=== PATIENT | male | born 1980 | race Caucasian/White ===

== ENCOUNTER 2024-09-17 13:14 | Outpatient (AMB) | payer OTHER, SELFPAY ==
--- NOTE | 2024-09-17 13:17 | A.OFFPC_ITS ---
Vital Signs 09/17/24 13:19 Height 5 ft 10.08 in Weight 180 lb 8 oz BMI 25.8 BP 120/70 Blood Pressure Location Lt brachial Position Sitting Pulse 73 Pulse Source Pulse Oximeter Temp 97.1 F Temp Source Temporal Artery Scan Pulse Oximetry (%) 99 Oxygen Delivery Method Room Air Intake Visit Reasons: Establish Care Intake Note: Patient is a new patient here to establish care for Anxiety. Transferring care from [place]. Medical records have been requested and have not received. Referral to Urology (hx of vasectomy), GI (family hx of polyps) and lab order Wall Steamer Required: No Telecommunication Engineer: Not Required per policy Accompanied by: Self / Same As Patient Allergies Penicillins Allergy (Intermediate, Verified 09/17/24 13:29) Hives Sulfa (Sulfonamide Antibiotics) Allergy (Intermediate, Verified 09/17/24 13:29) Hives Medication List - Last Reconciled 09/17/24 by Joan Gaytan PA-C No Known Home Meds Tobacco use date assessed: 09/17/24 Dental Screening Dental Screen Date: 09/17/24 Did you have a dental visit in the last 12 months?: Yes Did you have a dental problem in the last 6 months where you did not have access to dental care?: No Was dental information given to patient?: Patient has dentist HPI Establish Care HPI Details 44-year-old male coming to the office fo r the 1st time. Presenting for a wellness examination with screening concerns for prostate cancer and colonoscopy due to family history. His last medical visit was over a year ago, and he maintains his health without regular medication. He experiences worsening allergy symptoms, notably affecting his respiratory system, observed after relocation and exposure to local pollen, raising concerns about lingering childhood asthma. He also notes post-vasectomy heaviness and symptoms typical of carpal tunnel syndrome potentially linked to repetitive hand movements. [facility] Medical History (Updated 09/17/24 @ 14:00 by Joan Gaytan PA-C) Asthma Surgical History [place] teeth extracted History of vasectomy Social History Housing: House Alcohol intake: current Alcohol intake frequency: a few times a week Patient Tobacco Use Status: Never used Tobacco e-Cigarette/Vaping Use: Never Used Second Hand Smoke Exposure: No service: No Current occupational status: employed Current occupation: Self employed Cognitive needs: No Hearing needs: No Vision needs: Yes (Reading glasses) Questionnaire PHQ-9 Over the last 2 weeks, how often have you been bothered by any of the following problems? 1. Little interest or pleasure in doing things: not at all 2. Feeling down, depressed, or hopeless: not at all 3. Trouble falling or staying asleep, or sleeping too much: not at all 4. Feeling tired or having little energy: not at all 5. Poor appetite or overeating: not at all 6. Feeling bad about yourself - or that you are a failure or have let yourself or your family down: not at all 7. Trouble concentrating on things, such as reading the newspaper or watching television: not at all 8. Moving or speaking so slowly that other people could have noticed. Or the opposite - being so fidgety or restless that you have been moving around a lot more than usual: not at all 9. Thoughts that you would be better off or of hurting yourself in some way: not at all Total score: 0 Depression Screening Interpretation: Negative Depression Screening Done: Yes Source: Developed by Drs. Amado Morel, Rehana Bob, Salvador Flores and colleagues, with an educational nathan from [employer]. Thrive Questionnaire Date Thrive assessed: 09/15/24 I am a: Patient What is your living situation today?: I have a steady place to live Within the past 12 months, did the food you bought not last and you didn't have the money to get more?: Never true Within the past 12 months, did you worry whether your food would run out before you got money to buy more?: Never true Do you have trouble paying for medicines?: No Do you have trouble getting transportation to medical appointments?: No Do you have trouble paying your heating and electricity bill?: No Do you have trouble taking care of your child, family member or friend?: No Do you have trouble with day-to-day activities such as bathing, preparing meals, shopping, managing finances, etc.?: No Are you currently unemployed and looking for a job?: No Are you interested in more education?: No Please select the resources that you would like help with: None Currently or been in a relationship where the following occur: No concerns reported THRIVE Score: 0 AUDIT C Alcohol Use Questionnaire (AUDIT-C) 1. How often do you have a drink containing alcohol?: 2-3 times a week 2. How many drinks containing alcohol do you have on a typical day when you are drinking?: 1 or 2 3. How often do you have six or more drinks on one occasion?: Never Total Score: 3 PRIMITIVO-7 AMB Questionnaire PRIMITIVO-7 Date PRIMITIVO - 7 assessed: 09/17/24 Feeling nervous, anxious, or on edge: 0 = Not at all Not being able to stop or control worryin = Not at all Worrying too much about different things: 0 = Not at all Trouble relaxin = Not at all Being so restless that it is hard to sit still: 0 = Not at all Becoming easily annoyed or irritable: 0 = Not at all Feeling afraid as if something awful might happen: 0 = Not at all Total PRIMITIVO-7 score (0-4 normal; 5-9 mild; 10-14 moderate; 15-21 severe): 0 Source: Developed by Drs. Amado Morel, Rehana Bob, Salvador Flores and colleagues, with an educational nathan from [employer]. PRIMITIVO-7 Assessment Billing PRIMITIVO-7 Assessment Tool: PRIMITIVO-7 Assessment 89542 Review of Systems Const Denies body aches, Denies chills, Denies fever(s), Denies headache(s) and Denies poor appetite Eyes Reports no additional complaints ENT Denies dizziness and Denies headache(s) Card Denies chest pain, Denies irregular heart rhythm, Denies lightheadedness and Denies dyspnea Resp Denies cough and Denies dyspnea GI Denies abdominal pain, Denies constipation, Denies diarrhea, Denies nausea and Denies vomiting Reports no additional complaints Musc Reports no additional complaints and Denies abnormal gait Skin/Breast Reports system reviewed and no additional complaints, except as documented Neuro Denies abnormal gait, Denies dizziness and Denies headache(s) Psych Reports no additional complaints Physical exam (Primary Care) Vital Signs: Last Vital Signs Temp 97.1 F 09/17/24 13:19 Oxygen Delivery Method Room Air 09/17/24 13:19 BMI result Body Mass Index 25.8 Tobacco/Smoking Status: Tobacco use Status Patient Tobacco Use Status Never used Tobacco 09/17/24 13:18 PHQ-9: PHQ-9 Score PHQ-9: Total score 0 09/17/24 13:17 Depression Screening Interpretation: Negative Thrive Assessment: Date of Thrive Assessment Date Thrive assessed 09/15/24 09/17/24 13:17 Currently or been in a relationship where the following occur: No concerns reported Const General: cooperative, healthy appearing, comfortable and no acute distress Orientation/consciousness: patient oriented x3 HENMT Head: Yes normocephalic Ears: hearing grossly normal bilaterally General nose exam: Normal external nose present Eyes General: appearance normal, both eyes and all related structures Conjunctivae: conjunctivae normal Neck Neck: Yes full ROM and Yes no lymphadenopathy Resp Effort & Inspection: normal respiratory effort Auscultation: clear to auscultation bilaterally, no crackles, no rales, no rhonchi and wheezes expiratory wheezes, right lower and right upper Cardio Rate: regular rate Rhythm: regular rhythm Skin General skin exam: no rashes or lesions noted Neuro General: patient oriented x3 Gait exam (Neuro): Normal gait present Extrem General: Yes normal to inspection, Yes full ROM and No edema Psych Affect: normal affect Attitude: cooperative Insight: Good insight present (Psych) Judgement: Good judgement present (Psych) Coding Level of Care Code New Pt Level 4 (11754) Diagnoses Seasonal allergies J30.2 Screening for colorectal cancer Z12.11; Z12.12 Screening for hypercholesterolemia Z13.220 Screening for prostate cancer Z12.5 Asthma J45.909 Numbness and tingling in both hands R20.0; R20.2 Additional Codes PRIMITIVO-7 Assessment Billing - PRIMITIVO-7 Assessment Tool: PRIMITIVO-7 Assessment 36089 ([id number]) Assessment & Plan Assessment & Plan (1) Seasonal allergies: Code(s): J30.2 - Other seasonal allergic rhinitis Category: Medical Plan: Patient having seasonal allergies recommended use of verq-kwi-vchgiwe antihistamine with Claritin or Zyrtec. (2) Screening for colorectal cancer: Code(s): Z12.11 - Encounter for screening for malignant neoplasm of colon; Z12.12 - Encounter for screening for malignant neoplasm of rectum Category: Medical Plan: Referral was placed to GI today for colonoscopy screening. (3) Screening for hypercholesterolemia: Code(s): Z13.220 - Encounter for screening for lipoid disorders Category: Medical Plan: Blood work ordered (4) Screening for prostate cancer: Code(s): Z12.5 - Encounter for screening for malignant neoplasm of prostate Category: Medical Plan: PSA ordered today. (5) Asthma: Code(s): J45.909 - Unspecified asthma, uncomplicated Category: Medical Plan: Patient states he has a history of asthma and adolescence that resolved. On exam today he does have wheezing throughout the right side likely exacerbated by seasonal allergies. Asthma currently controlled on present medications. Start on albuterol as needed Avoid triggers such as allergies. (6) Numbness and tingling in both hands: Code(s): R20.0 - Anesthesia of skin; R20.2 - Paresthesia of skin Category: Medical Plan: Patient tells us today he does type often and noticed occasional numbness and tingling of bilateral hands with repetitive movements. Discussed with patient the use of wearing splints at nighttime to help with symptom management. At this time symptoms are not persistent enough to worn EMG. Advised patient to monitor his symptoms at this time and reach out to the office if they should worsen or persist. Plan This note was constructed using voice recognition software. While every effort has been made to ensure accuracy and gas engine mechanic, still areas may have been included sometimes these areas may affect the content or meeting of the given symptoms. Total time spent caring for the patient today was 30 minutes. This includes time spent before the visit reviewing the chart, time spent during the visit, and time spent after the visit and documentation. Patient was informed and verbally consented to the use of an ambient scribe for clinic note documentation during this visit. Orders: Orders PSA, Ultra Sensitive Today Z12.5 - Encounter for screening for malignant neoplasm of prostate Comprehensive Met. Panel Today Z00.00 - Encounter for general adult medical examination without abnormal findings TSH reflex Free T4 Today Z00.00 - Encounter for general adult medical examination without abnormal findings Vitamin B12 and Folate Today Z00.00 - Encounter for general adult medical examination without abnormal findings Complete Blood Count Auto Diff Today Z00.00 - Encounter for general adult medical examination without abnormal findings Lipid Panel Today Z13.220 - Encounter for screening for lipoid disorders Free T4 (Free Thyroxine) Today Z00.00 - Encounter for general adult medical examination without abnormal findings Vitamin D 25-OH Total Today Z00.00 - Encounter for general adult medical examination without abnormal findings Referrals Gastroenterology Referral Z12.11 - Encounter for screening for malignant neoplasm of colon Medications: New albuterol sulfate 90 mcg/actuation 1 inh inhalation QID 8.5 grams 1RF
[2024-09-17 13:19] VITALS: BP 120/70; PULSE 73; TEMP 36.2; O2SAT 99; BMI 25.8
--- OUTSIDE RECORDS SUMMARY | 2024-09-17 14:29 | XMS_ITS | CCD ---
Author Name Interface, [id number] lity Address [place] [address] [facility] Address [place] [address] [address] Reason for Visit Problems Social History
== END 2024-09-17 13:58 | disposition home or self-care (01) ==
DX: J30.2 Other seasonal allergic rhinitis (principal); Z12.11 Encounter for screening for malignant neoplasm of colon; Z12.12 Encounter for screening for malignant neoplasm of rectum; Z13.220 Encounter for screening for lipoid disorders; Z12.5 Encounter for screening for malignant neoplasm of prostate; J45.909 Unspecified asthma, uncomplicated; R20.0 Anesthesia of skin; R20.2 Paresthesia of skin

== ENCOUNTER → 2024-09-17 13:14 | Outpatient (BNVA) | payer OTHER, SELFPAY | DX: Z76.89 Persons encountering health services in other specified circumstances (principal); J45.909 Unspecified asthma, uncomplicated; R20.0 Anesthesia of skin; R20.2 Paresthesia of skin | CPT/HCPCS: 96127; 99202 ==

== ENCOUNTER 2025-01-29 12:42 | Outpatient (REF) | payer OTHER, SELFPAY ==
[2025-01-29 14:10] LABS: MANUAL DIFF FLAG NO
[2025-01-29 14:40] LABS: Hematocrit 43.1 % (42.0-52.0); Hemoglobin 14.4 g/dl (14.0-18.0); Imm Gran Abs Auto 0.03 X10*3/uL (0.00-0.03); Imm Gran Pct Auto 0.5 % (0.0-0.4); Lymphocytes Absolute Auto 1.3 X10*3/uL (1.2-4.9); Mean Corpuscular HGB Conc 33.4 g/dl (31.0-36.0); Mean Corpuscular Hemoglobin 30.9 pg (27.0-33.0); Mean Corpuscular Volume 92.5 fL (80.0-98.0); NRBC Abs Auto 0.000 X10*3/uL (0.0-0.012); NRBC Pct Auto 0.0 /100WBC (0.0-0.2); Platelet Count 272 X10*3/uL (160-400); Red Blood Count 4.66 X10*6/uL (4.60-5.80); White Blood Count 5.6 X10*3/uL (4.8-10.8)
[2025-01-29 15:35] LABS: Alanine Aminotransferase 30 U/L (0-40); Albumin Level 5.0 g/dL (3.5-5.0); Alkaline Phosphatase 49 U/L (39-117); Anion Gap 11 (12-20); Aspartate Amino Transferase 29 U/L (5-37); Blood Urea Nitrogen 17 mg/dL (9-16); Calcium 9.8 mg/dL (8.4-10.2); Carbon Dioxide 29 mmol/L (22-29); Chloride 105 mmol/L (96-108); Estimated Glomerular Filt Rate > 60; Potassium 4.5 mmol/L (3.3-5.1); Sodium 140 mmol/L (135-145); Total Protein 7.8 g/dL (6.5-8.0)
== END 2025-01-29 12:43 | disposition home or self-care (01) ==
LOC: HO.LAB 12:42
PROVIDERS: Visit Provider Nurse Practitioner
DX: J45.909 Unspecified asthma, uncomplicated (principal); Z80.0 Family history of malignant neoplasm of digestive organs; Z12.12 Encounter for screening for malignant neoplasm of rectum; Z12.11 Encounter for screening for malignant neoplasm of colon; Z01.818 Encounter for other preprocedural examination
CPT/HCPCS: 36415; 80053; 85025; 99202

== ENCOUNTER 2025-01-29 12:42 | Outpatient (AMB) | payer OTHER, SELFPAY ==
--- NOTE | 2025-01-29 12:46 | MHC.OFFVIS ---
Vital Signs 01/29/25 12:51 Height 5 ft 11 in Weight 181 lb BMI 25.2 BP 122/74 Blood Pressure Location Lt brachial Position Sitting Pulse 58 Pulse Source Pulse Oximeter Pulse Oximetry (%) 98 Oxygen Delivery Method Room Air Intake Visit Reasons: colo screening Intake Note: New pt for initial colo screening. No pertinent FMHx. CC: Pt denies any GI sx or concerns at this time. On Site Wastewater Systems Technician Required: No Accompanied by: Self / Same As Patient Allergies Penicillins Allergy (Intermediate, Verified 01/29/25 12:51) Hives Sulfa (Sulfonamide Antibiotics) Allergy (Intermediate, Verified 01/29/25 12:51) Hives HPI HPI colo screening: Details: 44-year-old male here for preprocedural meeting to discuss a screening colonoscopy. He is referred by Joan Gaytan. PMX Allergic rhinitis Asthma Hand and foot paresthesias * SURGICAL HISTORY [place] teeth extraction Vasectomy * ALLERGIES Penicillin Sulfa * [place] LABS: none TODAY'S VISIT This is his 1st colonoscopy. Bowel or upper GI problems: no Cardiac or respiratory problems: asthma well controlled, no cardiac. Anesthesia or sedation problems: no Infectious disease problems: no Family history: Mother had polyps, maternal grandmother CRC 50's. [facility] Medical History (Updated 01/29/25 @ 13:28 by KYLE Wetzel) Screening for colorectal cancer Screening for prostate cancer Screening for hypercholesterolemia Asthma Surgical History [place] teeth extracted History of vasectomy Social History Housing: House Alcohol intake: current Alcohol intake frequency: a few times a week Patient Tobacco Use Status: Never used Tobacco e-Cigarette/Vaping Use: Never Used Second Hand Smoke Exposure: No service: No Current occupational status: employed Current occupation: Self employed Cognitive needs: No Hearing needs: No Vision needs: Yes (Reading glasses) Review of Systems Const Denies fatigue, Denies fever(s), Denies night sweats, Denies poor appetite and Denies weight loss ENT Reports Normal hearing present, Denies dental pain, Denies dysphagia, Denies hearing loss, Denies mouth pain, Denies odynophagia, Denies throat swelling, Denies tongue swelling and Reports other (Dentition adequate) Card Reports no additional complaints Resp Reports no additional complaints GI Details: Denies abdominal pain, Denies melena, Denies bloating, Denies hematochezia, Denies constipation, Denies GI cramping, Denies dysphagia, Denies excessive flatus, Denies early satiety, Denies heartburn, Denies diarrhea, Denies nausea, Denies odynophagia, Denies vomiting and Denies hematemesis Skin/Breast Denies pruritus, Denies lesions, Denies rash and Denies jaundice Neuro Reports Normal hearing present and Denies Abnormal speech present Endo Denies fatigue Aller/Immun Denies throat swelling and Denies tongue swelling Physical Exam Const General: cooperative, no acute distress, well developed and well groomed Nutritional Appearance: average body habitus and well nourished Orientation/consciousness: oriented to person, oriented to place and oriented to time Limitations: No language barrier HEENT Head: Yes normocephalic and Yes atraumatic Eyes General: appearance normal, both eyes and all related structures Pupils: Equal, round and reactive pupils present Neck Neck: Yes normal visual inspection and Yes no lymphadenopathy Thyroid: Thyroid normal Resp Effort & Inspection: normal respiratory effort and able to speak in complete sentences Auscultation: clear to auscultation bilaterally Cardio Rate: regular rate Rhythm: regular rhythm Heart sounds: Normal, physiologic split S2 sound present Peripheral pulses: radial pulses present and posterior tibial pulses present GI Inspection: No distended and No Abdominal panniculus present Palpation (GI): Soft to palpation, nontender, no guarding, not rigid and No hepatosplenomegaly present Percussion: Yes normal to percussion Auscultation: normal bowel sounds Rectal Exam - Male: Yes deferred Skin General skin exam: no rashes or lesions noted, turgor normal, skin not dry, no jaundice, No spider nevi and no striae Rashes: no rashes Nails: normal Neuro General: oriented to person, oriented to place and oriented to time Cranial nerves: Yes Equal, round and reactive pupils present and Yes Normal hearing present Speech: No Abnormal speech present Extrem General: Yes normal to inspection, No clubbing, No cyanosis and No edema Psych Appearance: grossly normal and well kempt Mental Status: mental status grossly normal Speech and movement: Normal speech and movement present Affect: normal affect Attitude: cooperative Thought process: Normal thought process present and not confabulating Thought content: Normal thought content present Insight: Good insight present (Psych) Judgement: Good judgement present (Psych) Assessment & Plan Assessment & Plan (1) Family history of malignant neoplasm of colon in first degree relative diagnosed when younger than 60 years of age: Code(s): Z80.0 - Family history of malignant neoplasm of digestive organs Category: Medical (2) Asthma: Code(s): J45.909 - Unspecified asthma, uncomplicated Category: Medical Plan This is his 1st colonoscopy. Bowel or upper GI problems: no Cardiac or respiratory problems: asthma well controlled, no cardiac. Anesthesia or sedation problems: no Infectious disease problems: no Family history: Mother had polyps, maternal grandmother CRC 50's. Orders: Referrals GI Procedure Notification Z01.818 - Encounter for other preprocedural examination, Z12.11 - Encounter for screening for malignant neoplasm of colon, Z12.12 - Encounter for screening for malignant neoplasm of rectum Medications: New sodium,potassium,mag sulfates 17.5-3.13-1.6 gram (Suprep Bowel Prep Kit) 480 mL orally; FOR COLONOSCOPY PREP 354 mL 0RF Coding Level of Care Code New Pt Level 3 (73979) Diagnoses Family history of malignant neoplasm of colon in first degree relative diagnosed when younger than 60 years of age Z80.0 Asthma J45.909
[2025-01-29 12:51] VITALS: BP 122/74; PULSE 58; O2SAT 98; BMI 25.2
--- OUTSIDE RECORDS SUMMARY | 2025-01-29 14:47 | XMS_ITS | Clinical Summary ---
Author Organization [facility] Address [address] [place] [id number] Phone Care Team Providers Care Railroad Auditor Name Role Phone Unknown, Unknown Primary Care Provider Blessing lable Allergies Active Allergy Reactions Criticality Noted Date Comments Penciclovir 01/13/2024 Sulfa (Sulfonamide Antibiotics) 05/2023 Medications No known medications Immunizations Immunization Administration Dates Next Due Tdap 01/13/2024 Social History Tobacco Use Types Packs/Day Years Used Date Smoking Tobacco: Never Assessed Education Answer Date Recorded Are you interested in more education? Not on jeremy e 01/13/2024 Are you concerned about learning? Not on file 01/13/2024 No 01/13/2024 No 01/13/2024 Digital Access Answer Date Recorded No 01/13/2024 No 01/13/2024 Reliable internet access at home? Not on file 01/13/2024 Device with a working camera? Not on file Sex and Gender Information Value Date Recorded Sex Assigned at Not on file Legal Sex Male 2:45 PM EDT Gender Identity Not on file Sexual Orientation Not on file Last Filed Vital Signs Vital Sign Reading Time Taken Comments Blood Pressure 129/88 01/13/2024 2:55 PM EDT Pulse 75 01/13/2024 2:55 PM EDT Temperature 36.4 C (97.5 F) 01/13/2024 2:55 PM EDT Respiratory Rate 20 01/13/2024 2:55 PM EDT Oxygen Saturation 99% 01/13/2024 2:55 PM EDT Inhaled Oxygen Concentration - - Weight 77.1 kg (170 lb) 01/13/2024 2:55 PM EDT Height 179.1 cm (5' 10.5 ) 01/13/2024 2:55 PM ED T Body Mass Index 24.05 01/13/2024 2:55 PM EDT Plan of Treatment Health Maintenance Due Date Last Done Comments LIPID PANEL 1980 DEPRESSION SCREENING 1992 SMOKING Hx and SMOKELESS TOB ACCO SCREENING 1993 HEPATITIS C SCREENING 1998 HIV ONE-TIME SCREENING (18-6 5 YEARS) 1998 INFLUENZA VACCINE (#1) 2024 COVID-19 VACCINE (1 - 2023-2 5 season) 2025 Adult Td,Tdap Booster 01/12/2034 01/13/2024 HEPATITIS A VACCINES Aged Out No long er eligible based on patient's age to complete this topic HIB VACCINES Aged Out No longer eligi ble based on patient's age to complete this topic MENINGOCOCCAL VACCINES (ACWY) Aged Out No longer eligible based on patient's age to complete this topic MENINGOCOCCAL VACCINES (B) Aged Out N o longer eligible based on patient's age to complete this topic PNEUMOCOCCAL VACCINES (0-49 years) Aged Out No longer eligible based on patient's age to complete this topic Medical Devices Not on file [facility] Care Teams Railroad Auditor Relationship Specialty Start Date End Date Unknown, Unknown, PCP - General 01/13/24 Additional Source Comments The information contained in this document represents components of the legal health record. It is not the complete legal health record.[facility]
== END 2025-01-29 13:29 | disposition home or self-care (01) ==
LOC: HO.HGI 12:43
PROVIDERS: Visit Provider Nurse Practitioner
DX: Z80.0 Family history of malignant neoplasm of digestive organs (principal); J45.909 Unspecified asthma, uncomplicated
CPT/HCPCS: 99203

== ENCOUNTER 2025-03-05 06:22 | Day surgery (SDC) | payer OTHER, SELFPAY ==
--- OUTSIDE RECORDS SUMMARY | 2025-02-02 10:02 | XMS_ITS | Clinical Summary ---
Author Organization [facility] Address [address] [place] [id number] Phone Care Team Providers Care Private Equity Associate Name Role Phone Unknown, Unknown Primary Care [...] topic Medical Devices Not on file [facility] Care Teams Private Equity Associate Relationship Specialty Start Date End Date Unknown, Unknown, PCP - General 01/13/24 Additional Source Comments The information contained in this document represents components of the legal health record. It is not the complete legal health record.[facility]
--- OUTSIDE RECORDS SUMMARY | 2025-02-02 10:02 | XMS_ITS | CCD ---
Author Name Interface, [id number] lity Address [place] [address] [facility] Address [place] [address] Allergies and Adverse Reactions Reason for Visit Problems Social History
[2025-03-03 14:37] VITALS: BMI 25.2
[2025-03-05 07:04] VITALS: BMI 25.1
[2025-03-05] MEDS: Lactated Ringers 1,000 ML 100 ML IVCONT (07:05)
[2025-03-05 07:22] VITALS: BP 130/85; PULSE 80; RESP 18; TEMP 36.7; O2SAT 99
--- NOTE | 2025-03-05 08:04 | P.CONAN_ITS ---
Documented by User: Belen Patten NP 03/02/25 14:50 HPI - Anesthesia Eval Consult details Narrative: 44 yr old male for colonoscopy Allergy induced asthma PMF Active Problems Active Problems: All Active Problems Family history of malignant neoplasm of colon in first degree relative diagnosed when younger than 60 years of age (Acute) Pre-op examination (Acute) Atypical nevi (Acute) Numbness and tingling in both hands (Acute) Asthma (Acute) Seasonal allergies (Acute) Past Medical History Medical History Screening for colorectal cancer Screening for prostate cancer Screening for hypercholesterolemia Asthma Surgical History Surgical History [place] teeth extracted History of vasectomy Social History Social History Housing: House Are you a primary respiratory care assistant to a significant other at home: No Do you presently have visiting nurse or other home services: No Alcohol intake: current Alcohol intake frequency: a few times a week Patient Tobacco Use Status: Never used Tobacco e-Cigarette/Vaping Use: Never Used Second Hand Smoke Exposure: No Have you been hit, kicked, punched, or otherwise hurt by someone within the past year? If so, by whom?: No Are you DNR?: No Advance Directives: No Advance Directives Information Provided: Yes Poor oral hygiene: No service: No Current occupational status: employed Current occupation: Self employed Cognitive needs: No Hearing needs: No Vision needs: Yes (Reading glasses) Meds Allergies Allergy/AdvReac Type Severity Reaction Status Date / Time Penicillins Allergy Intermediate Hives Verified 03/05/25 07:06 Sulfa (Sulfonamide Allergy Intermediate Hives Verified 03/05/25 07:06 Antibiotics) Documented by User: Natalie Willett DO 03/05/25 08:06 PMFSH Past Medical History Medical History Screening for colorectal cancer Screening for prostate cancer Screening for hypercholesterolemia Asthma Family History Family history of problems with anesthesia: No Surgical History Surgical History [place] teeth extracted History of vasectomy History of Problems with Anesthesia: No Social History Social History Housing: House Are you a primary respiratory care assistant to a significant other at home: No Do you presently have visiting nurse or other home services: No Alcohol intake: current Alcohol intake frequency: a few times a week Patient Tobacco Use Status: Never used Tobacco e-Cigarette/Vaping Use: Never Used Second Hand Smoke Exposure: No Have you been hit, kicked, punched, or otherwise hurt by someone within the past year? If so, by whom?: No Are you DNR?: No Advance Directives: No Advance Directives Information Provided: Yes Poor oral hygiene: No service: No Current occupational status: employed Current occupation: Self employed Cognitive needs: No Hearing needs: No Vision needs: Yes (Reading glasses) Meds Allergies Allergy/AdvReac Type Severity Reaction Status Date / Time Penicillins Allergy Intermediate Hives Verified 03/05/25 07:06 Sulfa (Sulfonamide Allergy Intermediate Hives Verified 03/05/25 07:06 Antibiotics) Exam Exam Date and Time: 03/05/25 0804 Height,Weight and Vital Signs: Height 5 ft 11 in Weight 81.647 kg Vital Signs Temperature 98.1 F 03/05/25 07:22 Pulse Rate 80 03/05/25 07:22 Respiratory Rate 18 03/05/25 07:22 Blood Pressure 130/85 03/05/25 07:22 Pulse Oximetry 99 03/05/25 07:22 Oxygen Delivery Method Room Air 03/05/25 07:22 Temperature 98.1 F 03/05/25 07:22 Pulse Rate 80 03/05/25 07:22 Respiratory Rate 18 03/05/25 07:22 Blood Pressure 130/85 03/05/25 07:22 Pulse Oximetry 99 03/05/25 07:22 Oxygen Delivery Method Room Air 03/05/25 07:22 Airway Mallampati Class: I TM Dist: >3cm Neck ROM: Full Loose/Missing/Broken Teeth: No (patient denies any loose or broken teeth) Heart: S1S2 Lungs: CTAB Assessment and Plan Assessment Anesthesia Assessment: Anesthesia Plan Discussed and Chart Reviewed Final Anesthetic Review Family History of Problems with Anesthesia: No History of Problems with Anesthesia: No NPO: Yes ASA Class: II Final Preanesthetic Review: No Changes in Pt Med Stat, Meds/Allgs Chart Reviewed, Consent Obtained/Reviewed and Anes Risks/Benef Reviewed Patient Risk: Low Procedure Risk: Low Anesthetic Plan Anesthetic Plan: MAC: and Agree w/ Assess. and Plan Disposition: Standard PACU
--- NOTE | 2025-03-05 08:06 | P.HPSUR_ITS ---
Pre-Procedural Eval Section A - 24 Hr Update-Section A only Date of Service: 03/05/25 Section B - Complete if H&P > 30 days Chief Complaint: screening,preprocedural exam Relevant Family History (Specify if Yes): No Relevant Social History: None Present Medications: see Short Stay Collaborative assessment Medical History: Significant History (Allergic rhinitis Asthma Hand and foot paresthesias ) History of Previous Operations: Relevant previous surgery/procedure and date(s) ([place] teeth extraction Vasectomy ) Allergies: Allergies Allergy/AdvReac Type Severity Reaction Status Date / Time Penicillins Allergy Intermediate Hives Verified 03/05/25 07:06 Sulfa (Sulfonamide Allergy Intermediate Hives Verified 03/05/25 07:06 Antibiotics) Review of Systems Sugical H&P ROS: Negative: Constitution, Cardiovascular, Respiratory, Neurological, Psychiatric, Hem-Onc, Allergic/Immunologic, Gastrointestinal, Genitourinary, Musculoskeletal, Integumentary, Endocrine and Eyes/Ears/Nose/Throat Exam Surgical H&P Exam: Normal: HEENT, Normal: Heart, Normal: Lungs, Normal: Extremities, Normal: Abdomen, Normal: Skin and Normal: Neurological Plan Diagnosis/Plan: Unchanged I have reviewed the history and physical and performed a pertinent physical examination on my patient. No changes have occurred unless specified. Time Spent With Patient Time: Total time managing care of this patient today ____ minutes.
--- NOTE | 2025-03-05 08:33 | HO.OPN-COLON ---
Colonoscopy Operative Note Operative Note Date of Service: 03/05/25 Narrative: Operative Information Procedure Description: Colonoscopy Indication: Screening Anesthesia: MAC COLONOSCOPY Instrument: Olympus variable stiffness pediatric scope 190L Colonoscopy Monitoring: Vital signs and clinical assessment, continuous EKG monitoring, Pulse oximetry, Carbon Dioxide monitoring and blood pressure monitoring were done throughout the procedure. Colon withdrawal time was 12 minutes. Procedure: The patient was placed in the left lateral decubitis position and pre-procedure medications were administered. After a digital rectal examination of the ano-rectum, the video colonoscope was inserted into the rectum and advanced through the colon to the cecum/TI. The colonoscope was slowly withdrawn in a retrograde panoramic fashion and the colon mucosa was carefully examined including a retroflexed view of the rectum. Findings and interventions are described below. Procedure Difficulty: easy Findings: Terminal Ileum-normal Cecum:normal Right sided retroflexion- normal Ascending Colon: normal Transverse Colon -normal Descending Colon:normal Sigmoid Colon: 6-8 mm sessile polyp removed with cold snare, 4-6 mm sessile polyp removed with cold forceps Rectum: Retroflexion with small internal hemorrhoids seen, grade I Anorectum - normal Intervention: cold snare, cold forceps Colon preparation: [place] Bowel Preparation Scale Right colon; 2 Transverse colon: 2 Left colon; 2 (0 = Unprepared colon segment with mucosa not seen due to solid stool that cannot be cleared. 1 = Portion of mucosa of the colon segment seen, but other areas of the colon segment not well seen due to staining, residual stool and/or opaque liquid. 2 = Minor amount of residual staining, small fragments of stool and/or opaque liquid, but mucosa of colon segment seen well. 3 = Entire mucosa of colon segment seen well with no residual staining, small fragments of stool or opaque liquid) Impression and Post Procedure Diagnosis: colon polyps x 2 internal hemorrhoids Plan: High fiber diet leaflet Avoid straining at stool, epsom salts and sitz bath, anusol supps or cream Repeat Colonoscopy in 5 years if adenomas, 10 yrs if hyperplastic or earlier if clinically indicated Above findings were reviewed with the patient and relevant handouts were provided if indicated.
[2025-03-05 08:39] VITALS: BP 100/56; PULSE 78; RESP 18; TEMP 36.2; O2SAT 95
[2025-03-05 08:50] VITALS: BP 114/76; PULSE 69; RESP 18; TEMP 36.2; O2SAT 98
== END 2025-03-05 09:13 | disposition home or self-care (01) ==
PROVIDERS: Visit Provider Internal Medicine Gastroenterology
PROC: 0DJD8ZZ Inspection of Lower Intestinal Tract, Via Natural or Artificial Opening Endoscopic (ICD-10-PCS; CPT 45378; principal; 2025-03-05 08:20)
DX: Z12.11 Encounter for screening for malignant neoplasm of colon (principal); Z83.719 Family history of colon polyps, unspecified; Z80.0 Family history of malignant neoplasm of digestive organs; K64.0 First degree hemorrhoids; K63.5 Polyp of colon
CPT/HCPCS: 45380; 45385; 88305; J2003; J2704

== ENCOUNTER → 2025-03-05 06:22 | Outpatient (BNV) | payer OTHER, SELFPAY | PROVIDERS: Visit Provider Internal Medicine Gastroenterology | DX: Z12.11 Encounter for screening for malignant neoplasm of colon (principal); D12.5 Benign neoplasm of sigmoid colon; K64.0 First degree hemorrhoids | CPT/HCPCS: 45385 ==

== ENCOUNTER 2025-03-11 14:36 | Outpatient (AMB) | payer OTHER, SELFPAY ==
--- NOTE | 2025-03-11 14:41 | MHC.PC.OV ---
Vital Signs 03/11/25 14:42 Height 5 ft 11 in Weight 180 lb BMI 25.1 BP 110/70 Blood Pressure Location Lt brachial Position Sitting Pulse 54 Pulse Source Pulse Oximeter Temp 97.1 F Temp Source Temporal Artery Scan Pulse Oximetry (%) 95 Oxygen Delivery Method Room Air Intake Visit Reasons: annual reschedule Intake Note: Patient is a new patient here to establish care for Anxiety. Transferring care from [place]. Medical records have been requested and have not received. Referral to Urology (hx of vasectomy), GI (family hx of polyps) and lab order Commission Sales Associate Required: No Architectural Design Professor: Not Required per policy Accompanied by: Self / Same As Patient Allergies Penicillins Allergy (Intermediate, Verified 03/11/25 15:05) Hives Sulfa (Sulfonamide Antibiotics) Allergy (Intermediate, Verified 03/11/25 15:05) Hives Medication List - Last Reconciled 03/11/25 by Joan Gaytan PA-C albuterol sulfate 90 mcg/actuation 1 inh inhalation QID bupropion HCl 100 mg PO BID Tobacco use date assessed: 03/11/25 Dental Screening Dental Screen Date: 03/11/25 Did you have a dental visit in the last 12 months?: Yes Did you have a dental problem in the last 6 months where you did not have access to dental care?: No Was dental information given to patient?: Patient has dentist HPI annual reschedule HPI Details 44 year old male with past medical history asthma last seen 09/2024 coming in for annual exam. Recently underwent colonoscopy 02/2025. He was started on Wellbutrin for depression and anxiety about a month ago but discontinued it after approximately two weeks due to concerns about its interaction with alcohol. He reports drinking alcohol a couple of times per week socially and did not notice a significant difference in his mood during the short time he was on the medication. The patient reports seasonal allergies that cause a cough with phlegm production, which is exacerbated by exposure to environmental triggers like blowing leaves. He states that [id number] medications like Zyrtec and Claritin are ineffective, and he has run out of a previously used albuterol inhaler. The allergies tend to exacerbate the asthma. He does mention about three weeks ago, he had a four-day episode of severe pain in the arch of his foot that made walking difficult, which he suspects is plantar fasciitis. colonoscopy: 02/2025 repeat in 10 years PSA: ordered vaccines: [facility] Medical History Screening for colorectal cancer Screening for prostate cancer Screening for hypercholesterolemia Asthma Surgical History [place] teeth extracted History of vasectomy Social History Housing: House Are you a primary animal care service worker to a significant other at home: No Do you presently have visiting nurse or other home services: No Alcohol intake: current Alcohol intake frequency: a few times a week Patient Tobacco Use Status: Never used Tobacco Tobacco use type: Cigarette e-Cigarette/Vaping Use: Never Used Second Hand Smoke Exposure: No service: No Current occupational status: employed Current occupation: Self employed Cognitive needs: No Hearing needs: No Vision needs: Yes (Reading glasses) Questionnaire PHQ-9 Over the last 2 weeks, how often have you been bothered by any of the following problems? 1. Little interest or pleasure in doing things: not at all 2. Feeling down, depressed, or hopeless: not at all 3. Trouble falling or staying asleep, or sleeping too much: not at all 4. Feeling tired or having little energy: not at all 5. Poor appetite or overeating: not at all 6. Feeling bad about yourself - or that you are a failure or have let yourself or your family down: not at all 7. Trouble concentrating on things, such as reading the newspaper or watching television: not at all 8. Moving or speaking so slowly that other people could have noticed. Or the opposite - being so fidgety or restless that you have been moving around a lot more than usual: not at all 9. Thoughts that you would be better off or of hurting yourself in some way: not at all Total score: 0 Depression Screening Interpretation: Negative Depression Screening Done: Yes Source: Developed by Drs. Amado Morel, Rehana Bob, Salvador Flores and colleagues, with an educational nathan from [employer]. Thrive Questionnaire Date Thrive assessed: 03/11/25 I am a: Patient What is your living situation today?: I have a steady place to live Within the past 12 months, did the food you bought not last and you didn't have the money to get more?: Never true Within the past 12 months, did you worry whether your food would run out before you got money to buy more?: Never true Do you have trouble paying for medicines?: No Do you have trouble getting transportation to medical appointments?: No Do you have trouble paying your heating and electricity bill?: No Do you have trouble taking care of your child, family member or friend?: No Do you have trouble with day-to-day activities such as bathing, preparing meals, shopping, managing finances, etc.?: No Are you currently unemployed and looking for a job?: No Are you interested in more education?: No Please select the resources that you would like help with: None Currently or been in a relationship where the following occur: No concerns reported THRIVE Score: 0 AUDIT C Alcohol Use Questionnaire (AUDIT-C) 1. How often do you have a drink containing alcohol?: 2-3 times a week 2. How many drinks containing alcohol do you have on a typical day when you are drinking?: 1 or 2 3. How often do you have six or more drinks on one occasion?: Never Total Score: 3 Score Reviewed/Action Taken: Yes PRIMITIVO-7 AMB Questionnaire PRIMITIVO-7 Date PRIMITIVO - 7 assessed: 03/11/25 Feeling nervous, anxious, or on edge: 0 = Not at all Not being able to stop or control worryin = Not at all Worrying too much about different things: 0 = Not at all Trouble relaxin = Not at all Being so restless that it is hard to sit still: 0 = Not at all Becoming easily annoyed or irritable: 0 = Not at all Feeling afraid as if something awful might happen: 0 = Not at all Total PRIMITIVO-7 score (0-4 normal; 5-9 mild; 10-14 moderate; 15-21 severe): 0 Source: Developed by Drs. Amado Morel, Rehana Bob, Salvador Flores and colleagues, with an educational nathan from [employer]. Review of Systems Const Denies body aches, Denies chills, Denies fever(s), Denies headache(s) and Denies poor appetite Eyes Reports no additional complaints ENT Denies dysphagia, Denies dizziness, Denies headache(s), Reports nasal congestion and Denies odynophagia Card Denies chest pain, Denies syncope, Denies edema, Denies irregular heart rhythm, Denies lightheadedness and Denies dyspnea Resp Denies cough and Denies dyspnea GI Denies abdominal pain, Denies constipation, Denies dysphagia, Denies diarrhea, Denies nausea, Denies odynophagia and Denies vomiting Reports no additional complaints Musc Reports no additional complaints and Denies abnormal gait Skin/Breast Reports system reviewed and no additional complaints, except as documented Neuro Denies abnormal gait, Denies dizziness, Denies syncope and Denies headache(s) Psych Reports no additional complaints Physical exam (Primary Care) Vital Signs: Last Vital Signs Temp 97.1 F 03/11/25 14:42 Pulse 54 03/11/25 14:42 BP 110/70 03/11/25 14:42 Pulse Ox 95 03/11/25 14:42 Oxygen Delivery Method Room Air 03/11/25 14:42 BMI result Body Mass Index 25.1 Tobacco/Smoking Status: Tobacco use Status Tobacco use date assessed 03/11/25 03/11/25 14:44 Patient Tobacco Use Status Never used Tobacco 03/11/25 14:44 Tobacco use type Cigarette 03/11/25 14:44 e-Cigarette/Vaping Use Never Used 03/11/25 14:44 PHQ-9: PHQ-9 Score PHQ-9: Total score 0 03/11/25 15:05 Depression Screening Interpretation: Negative Thrive Assessment: Date of Thrive Assessment Date Thrive assessed 03/11/25 03/11/25 14:44 Currently or been in a relationship where the following occur: No concerns reported Const General: cooperative, healthy appearing, comfortable and no acute distress Orientation/consciousness: patient oriented x3 HENMT Head: Yes normocephalic Ears: hearing grossly normal bilaterally General nose exam: Normal external nose present Eyes General: appearance normal, both eyes and all related structures Conjunctivae: conjunctivae normal Neck Neck: Yes full ROM and Yes no lymphadenopathy Resp Effort & Inspection: normal respiratory effort Auscultation: clear to auscultation bilaterally, no crackles, no rales, no rhonchi and no wheezes Cardio Rate: regular rate Rhythm: regular rhythm Skin General skin exam: no rashes or lesions noted Neuro General: patient oriented x3 Gait exam (Neuro): Normal gait present Extrem General: Yes normal to inspection, Yes full ROM and No edema Psych Affect: normal affect Attitude: cooperative Insight: Good insight present (Psych) Judgement: Good judgement present (Psych) Coding Level of Care Code Est Pt Prev Care 40-64y(31488) Diagnoses Annual physical exam Z00.00 Seasonal allergies J30.2 Asthma J45.909 Family history of malignant neoplasm of colon in first degree relative diagnosed when younger than 60 years of age Z80.0 Anxiety F41.9 Foot pain M79.673 Assessment & Plan Assessment & Plan (1) Annual physical exam: Code(s): Z00.00 - Encounter for general adult medical examination without abnormal findings Category: Medical Plan: Patient is up to date on all recommending routine screenings and vaccinations for his age. He is due for PSA and I did remind him about his blood work that is due. Healthy diet and regular exercise is encouraged. (2) Seasonal allergies: Code(s): J30.2 - Other seasonal allergic rhinitis Category: Medical Plan: Referral was placed to promotions specialist at patient request and awaiting an appointment at this time. For the patient's seasonal allergy symptoms and associated cough, which have not responded to qjpr-fdz-tqhoaaz antihistamines, a prescription for montelukast was sent to his pharmacy. It was explained that this oral medication works well for both allergies and asthma-like symptoms. (3) Asthma: Code(s): J45.909 - Unspecified asthma, uncomplicated Category: Medical Plan: Asthma currently controlled on present medications. Continue on albuterol as needed.? Avoid triggers such as allergies. See above plan as well. (4) Family history of malignant neoplasm of colon in first degree relative diagnosed when younger than 60 years of age: Code(s): Z80.0 - Family history of malignant neoplasm of digestive organs Category: Medical Plan: Colonoscopy 02/2025 repeat in 10 years. (5) Anxiety: Code(s): F41.9 - Anxiety disorder, unspecified Category: Medical Plan: The patient has been non-adherent with Wellbutrin, which he took for about two weeks before stopping due to concerns about alcohol interaction. He was counseled that while excessive drinking is not advised, intermittent social drinking on a low dose of the medication is unlikely to cause significant issues, with the main risk being a lowered seizure threshold. The patient plans to restart the medication in approximately two weeks after a stressful period. A three-month telehealth follow-up will be scheduled to monitor his response and tolerance to the medication. We did discuss avoiding alcohol all together and counseled on red flag symptoms. (6) Foot pain: Code(s): M79.673 - Pain in unspecified foot Category: Medical Plan: Regarding his recent foot arch pain, consistent with plantar fasciitis, he was educated on supportive measures including wearing insoles, particularly in his flat shoes, and performing stretching exercises such as towel scrunches and stair stretches. Plan This note was constructed using voice recognition software. While every effort has been made to ensure accuracy and phys asst, still areas may have been included sometimes these areas may affect the content or meeting of the given symptoms. Total time spent caring for the patient today was 30 minutes. This includes time spent before the visit reviewing the chart, time spent during the visit, and time spent after the visit and documentation. Patient was informed and verbally consented to the use of an ambient scribe for clinic note documentation during this visit. Medications: New montelukast 10 mg PO DAILY 30 tabs 0RF Refilled albuterol sulfate 90 mcg/actuation 1 inh inhalation QID 8.5 grams 1RF
[2025-03-11 14:42] VITALS: BP 110/70; PULSE 54; TEMP 36.2; O2SAT 95; BMI 25.1
--- OUTSIDE RECORDS SUMMARY | 2025-03-11 19:00 | XMS_ITS | Clinical Summary ---
Author Organization [facility] Address [address] [place] [id number] Phone Care Team Providers Care Weld Inspector Name Role Phone Unknown, Unknown Primary Care [...] VACCINE (#1) 2024 COVID-19 VACCINE (1 - 2024-2 6 season) 2025 Adult Td,Tdap Booster 01/12/2034 01/13/2024 [...] topic Medical Devices Not on file [facility] Care Teams Weld Inspector Relationship Specialty Start Date End Date Unknown, Unknown, PCP - General 01/13/24 Additional Source Comments The information contained in this document represents components of the legal health record. It is not the complete legal health record.[facility]
--- OUTSIDE RECORDS SUMMARY | 2025-03-11 19:00 | XMS_ITS | CCD ---
Author Name Interface, [id number] lity Address [place] [address] [facility] Address [place] [address] Allergies and Adverse Reactions Medication/Group Name Reaction Severity Date Sulfa (Sulfonamide Antibiotics) 03/12/2020 Penicillins 03/12/2020 Reason for Visit Problems Diagnosis Status Date of Diagnosis Resolution Date Arthritis (disorder) Active Social History Date Name Value 07/30/2020 Sex Male
== END 2025-03-11 15:44 | disposition home or self-care (01) ==
LOC: HO.HMCH 14:37
DX: Z00.00 Encounter for general adult medical examination without abnormal findings (principal); J30.2 Other seasonal allergic rhinitis; J45.909 Unspecified asthma, uncomplicated; Z80.0 Family history of malignant neoplasm of digestive organs; F41.9 Anxiety disorder, unspecified; M79.673 Pain in unspecified foot

== ENCOUNTER → 2025-03-11 14:36 | Outpatient (BNVA) | payer OTHER, SELFPAY | DX: Z00.00 Encounter for general adult medical examination without abnormal findings (principal); F32.A Depression, unspecified; F41.9 Anxiety disorder, unspecified; J45.909 Unspecified asthma, uncomplicated; M79.673 Pain in unspecified foot; Z80.0 Family history of malignant neoplasm of digestive organs; Z79.899 Other long term (current) drug therapy | CPT/HCPCS: 99396 ==